=== PATIENT | male | born 1980 | race Caucasian/White ===

== ENCOUNTER 2016-11-05 11:36 | Emergency (ER) | payer OTHER ==
[~2016-11-05] VITALS: Ht 180.3 cm; Wt 81.6 kg
[2016-11-05 11:43] VITALS: BP 137/65
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
== END 2016-11-05 13:50 ==
LOC: ERH 11:36
DX: M79.671 Pain in right foot (principal); M25.521 Pain in right elbow; M54.5 Low back pain; V89.2XXA Person injured in unspecified motor-vehicle accident, traffic, initial encounter; Y92.488 Other paved roadways as the place of occurrence of the external cause
CPT/HCPCS: 73630-RT